=== PATIENT | female | born 1965 | race Caucasian/White ===

== ENCOUNTER → 2024-05-23 | Outpatient (CLI) | payer MEDICARE, OTHER ==
--- NOTE | 2024-05-23 13:52 | US ---
EXAMINATION TYPE: US abdomen complete DATE OF EXAM: 05/23/2024 COMPARISON: NONE CLINICAL INDICATION: Female, 58 years old with history of R10.10 UPPER ABDOMINAL PAIN, UNSPECIFIED; i ntermittent left flank pain TECHNIQUE: Multiple sonographic images of the abdomen are obtained. FINDINGS: EXAM MEASUREMENTS: Liver Length: 12.9 cm Gallbladder Wall: 0.2 cm CBD: 0.5 cm Spleen: 8.2 cm Right Kidney: 9.0 x 3.7 x 4.0 cm Left Kidney: 10.7 x 4.7 x 4.1 cm Pancreas: Tail obscured by overlying bowel gas Liver: wnl Gallbladder: no evidence of stones Evidence for sonographic Gaona's sign: no CBD: wnl Spleen: wnl Right Kidney: no evidence of hydronephrosis or nephrolithiasis Left Kidney: dense echogenic focus upper/mid = 0.4cm Upper IVC: wnl Abd Aorta: wnl Findings are suggestive of a nonobstructing 4 mm left renal calculus IMPRESSION: 4 mm nonobstructing left renal calculus.
[2024-05-23 19:09] LABS: Amylase 69 U/L (23-121); C Reactive Protein <0.30 mg/dL (0.00-0.80); Lipase 30 U/L (14-63)
[2024-05-26 14:38] LABS: Alpha 1 Anti-Trypsin 131 mg/dL (90 - 200)
[2024-05-29 22:41] LABS: LD Isoenzymes 1 28 % (18-32); LD Isoenzymes 2 33 % (29-42); LD Isoenzymes 3 23 % (14-30); LD Isoenzymes 4 8 % (6-13); LD Isoenzymes 5 8 % (5-18); Lactacte Dehydrogenase(LD) ISO 177 U/L (120-250)
== END | disposition home or self-care (01) ==
LOC: RADUSWWP 12:52
PROVIDERS: ATTEND Internal Medicine
DX: R10.10 Upper abdominal pain, unspecified
CPT/HCPCS: 36415; 76700; 82103; 82104; 82150; 83625; 83690; 84145; 86140

== ENCOUNTER 2024-07-09 08:37 | Day surgery (SDC) | payer MEDICARE, OTHER ==
[2024-07-08 08:23] VITALS: BMI 18.4
[2024-07-09] MEDS: IV FLUID CONTINUATION 1,000 ML IV ONE (09:00)
[2024-07-09 09:02] VITALS: TEMP 97.9
[2024-07-09] MEDS: LACTATED RINGERS 1,000 ML IV SCH (09:11)
[2024-07-09] MEDS ORDERED: PROPOFOL 10 MG/ML 20 ML VIAL IV ONE (09:32)
[2024-07-09] MEDS ORDERED: LIDOCAINE 1% INJ 10MG/ML (20 ML MDV) ONE (09:32)
--- NOTE | 2024-07-09 09:43 | P.PCN ---
Date of Procedure: 07/09/24 Procedure(s) Performed: BRIEF HISTORY: Patient is a 58-year-old pleasant white female scheduled for an elective colonoscopy as a part of evaluation of change in bowel habits. PROCEDURE PERFORMED: Colonoscopy. PREOPERATIVE DIAGNOSIS: Change in bowel habits. IV sedation per Anesthesia. PROCEDURE: After informed consent was obtained, the patient, was brought into the endoscopy unit. IV sedation was administered by Anesthesia under continuous monitoring. Digital rectal examination was normal. Initially the Olympus CF-160 flexible video colonoscope was then inserted in the rectum, gradually advanced into the cecum without any difficulty. Careful examination was performed as the scope was gradually being withdrawn. Ileocecal valve and the appendiceal orifice were visualized and appeared normal. Prep was excellent. Mucosa of the cecum, ascending colon, transverse colon, descending colon, sigmoid colon, and rectum appeared normal. Katter sigmoid diverticulosis. Anastomosis from previous sigmoid resection located at 20 cm from the anal verge that appeared normal. Retroflexion was performed in the rectum and no lesions were seen. The patient tolerated the procedure well. IMPRESSION: Normal-appearing colon from rectum to cecum with no evidence of colorectal neoplasia Scattered sigmoid diverticulosis. RECOMMENDATIONS: Findings of this examination were discussed with the patient as well as her family. With a high-fiber diet. She was advised to have repeat screening colonoscopy in 10 years..
[2024-07-09 10:02] VITALS: RESP 16
[2024-07-09 10:12] VITALS: BP 111/61; PULSE 77
== END 2024-07-09 10:29 | disposition home or self-care (01) ==
LOC: ORWHC2ENDO 08:37
PROVIDERS: ATTEND Internal Medicine Gastroenterology
CPT/HCPCS: 45378

== ENCOUNTER → 2024-08-01 | Outpatient (CLI) | payer MEDICARE ==
--- NOTE | 2024-08-01 14:57 | CT ---
EXAMINATION TYPE: CT abdomen pelvis wo con CT DLP: 201.40 mGycm, Automated exposure control for dose reduction was used. DATE OF EXAM: 08/01/2024 2:30 PM COMPARISON: None CLINICAL INDICATION:Female, 58 years old with history of N20.0 CALCULUS OF KIDNEY R10.9 UNSPECIFIED A BDOMIN; Mid abdomen and LT side abdomen pain, hx renal stones. TECHNIQUE: Standard CT of the abdomen and pelvis without IV or oral contrast. Lack of IV or oral co ntrast limits evaluation of solid and hollow organ viscera. Coronal and sagittal reformats were perfo rmed. FINDINGS: LOWER CHEST: Linear scarring and/or atelectasis within the bilateral lung bases. ABDOMEN LIVER: Unremarkable noncontrast appearance GALLBLADDER AND BILE DUCTS: Unremarkable noncontrast appearance PANCREAS: Unremarkable noncontrast appearance SPLEEN: Unremarkable noncontrast appearance ADRENAL GLANDS: Unremarkable noncontrast appearance. KIDNEYS AND URETERS: No evidence of hydronephrosis . Approximately 3 punctate nonobstructive left marei al calculi. Approximately 5 nonobstructive right renal calculi with largest measuring up to 3 mm. No definitive ureteral calculus. PELVIS BLADDER: Incompletely distended but grossly unremarkable. REPRODUCTIVE: The uterus is surgically absent. ABDOMEN & PELVIS STOMACH AND BOWEL: Stomach and duodenum are unremarkable. Postsurgical changes with anastomosis at th e sigmoid colon. Cecum is identified within the posterior lower pelvis. No evidence of bowel obstruct ion. PERITONEUM: No evidence of pneumoperitoneum or free fluid. VASCULATURE: No evidence of aortic aneurysm. Pelvic phleboliths. MUSCULOSKELETAL: No acute osseous abnormalities LYMPH NODES: No gross evidence for lymphadenopathy. SOFT TISSUE/ABDOMINAL WALL: Unremarkable IMPRESSION: 1. No evidence for obstructive uropathy or other acute abdominopelvic process within limitations of a noncontrast exam. 2. Small nonobstructive bilateral renal calculi. [facility], , 08/01/2024 2:54 PM
== END | disposition home or self-care (01) ==
LOC: RADCTMAIN 13:47
PROVIDERS: ATTEND Urology
DX: N20.0 Calculus of kidney (principal); Z87.442 Personal history of urinary calculi
CPT/HCPCS: 74176